=== PATIENT | female | born 1955 | race Caucasian/White ===

== ENCOUNTER 2018-12-17 16:19 | Inpatient (IN) | payer MEDICAID ==
[2018-12-17] MEDS ORDERED: Sodium Chloride 0.9% 1,000 ML IV ONE (17:18)
[2018-12-17] MEDS ORDERED: diphenhydrAMINE 50 MG/ML SDV IV ONE (17:28)
[2018-12-17] MEDS ORDERED: Acetaminophen 325 MG Tab PO ONE (17:28)
[2018-12-17] MEDS ORDERED: Furosemide 40 MG/4 ML VIAL IVPUSH ONE (17:28)
--- NOTE | 2018-12-17 18:02 | EDM.PDOC ---
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 She has a h/o Uterine cancer diagnosed back in 2011 at [facility] in [place], [place] (moved here in 2012) and states she has had intermittent "ceaseless bleeding ever since". She was supposed to have surgery for the cancer, but she lost her job and insurance and has not followed up with anyone since 2011. Her vaginal bleeding episodes are usually "short term"- lasting 5 minutes, feeling weak for a couple of days, and then she "just recovers". However, she says today is "the worst and I'm scared- I've been bleeding into the toilet for 1 hour straight". She states she got so dizzy she couldn't stand and so she went from the toilet to her knees. She denies any syncopal episode or fall. She also c/o of SOB with exertion, which is chronic. She denies any ROJO, change in vision, pain/cramping, chest pain, N/V/ D, hematochezia, hematuria. She has no other symptoms at this time. She currently has no PCP, SCHOOL LUNCH MANAGER, or SCHOOL LUNCH MANAGER ONC. She is a Full Code. - Related Data Allergies Allergy/AdvReac Type Severity Reaction Status Date / Time No Known Allergies Allergy Verified 12/17/18 16:29 Home Meds: Home Meds . [No Known Home Meds] 12/17/18 [History] ED ROS GENERAL - Review of Systems Review Of Systems: See Below Constitutional: Reports: Weakness, Fatigue. Denies: Fever, Chills HEENT: Reports: No Symptoms Respiratory: Reports: Shortness of Breath (with exertion). Denies: Wheezing, Cough Cardiovascular: Reports: Dyspnea on Exertion, Lightheadedness. Denies: Chest Pain Endocrine: Reports: Fatigue GI/Abdominal: Reports: No Symptoms. Denies: Abdominal Pain, Black Stool, Bloody Stool, Diarrhea, Hematemesis, Hematochezia, Nausea, Vomiting Musculoskeletal: Reports: Leg Pain (has muscle spasms when tries to move) Skin: Reports: Pallor Neurological: Reports: Dizziness, Difficulty Walking, Weakness, Gait Disturbance. Denies: Confusion, Headache, Numbness, Tingling, Trouble Speaking Hematologic/Lymphatic: Reports: Anemia ED EXAM, GENERAL - Physical Exam Exam: See Below Exam Limited By: No Limitations General Appearance: Alert, Mild Distress Eye Exam: Bilateral Eye: EOMI, PERRL, Other (pallor of eyelids) Ears: Normal External Exam, Hearing Grossly Normal Nose: Normal Inspection, Normal Mucosa, No Blood Throat/Mouth: Normal Oropharynx, Normal Voice, No Airway Compromise, Other ( pallor of gums and lips). No: Normal Lips, Normal Gums Head: Atraumatic, Normocephalic Neck: Normal Inspection, Supple, Non-Tender, Full Range of Motion Respiratory/Chest: No Respiratory Distress, Lungs Clear, Normal Breath Sounds, No Accessory Muscle Use, Chest Non-Tender Cardiovascular: Normal Peripheral Pulses, Regular Rate, Rhythm, No Edema, No Gallop, No JVD, No Murmur, No Rub Peripheral Pulses: 2+: Posterior Tibial (L), Posterior Tibial (R), Dorsalis Pedis (L), Dorsalis Pedis (R) GI/Abdominal: Normal Bowel Sounds, Soft, Non-Tender, No Organomegaly, No Distention, No Abnormal Bruit, No Mass (Female) Exam: Vaginal Bleeding, Vaginal Discharge. No: Cervix Motion Tenderness, Uterine Tenderness Rectal (Female) Exam: Deferred Extremities: Normal Inspection, Normal Range of Motion, Non-Tender, Normal Capillary Refill, No Pedal Edema Psychiatric: Flat Affect Skin Exam: Warm, Dry, Intact, Pallor Course - Vital Signs Last Recorded V/S: Last Vital Signs Temp 98.4 F 12/17/18 18:38 Pulse 86 12/17/18 18:38 Resp 13 12/17/18 18:38 BP 127/54 L 12/17/18 18:38 Pulse Ox 96 12/17/18 16:25 - Orders/Labs/Meds Orders: Active Orders 24 hr Category Date Time Status Chest Abdomen Pelvis wo Cont [CT] Stat Exams 12/17/18 20:00 Taken GC/CHLAMYDIA BY PCR [MOLEC] Stat Lab 12/17/18 19:49 Received RED BLOOD CELLS LP [BBK] Stat Lab 12/17/18 16:28 Results TYPE AND SCREEN [BBK] Stat Lab 12/17/18 16:28 Results Transfuse PRBC [Transfuse Red Blood Cells] [COMM] Stat Oth 12/17/18 17:28 Ordered Labs: Laboratory Tests 12/17/18 12/17/18 12/17/18 Range/Units 16:28 16:28 16:28 WBC 11.11 H (3.98-10.04) K/mm3 RBC 3.08 L (3.98-5.22) M/mm3 Hgb 4.6 L* (11.2-15.7) gm/L Hct 18.6 L (34.1-44.9) % MCV 60.4 L (79.4-94.8) fl MCH 14.9 L (25.6-32.2) pg MCHC 24.7 L (32.2-35.5) g/dl RDW Std Deviation 46.0 (36.4-46.3) fL Plt Count 311 (182-369) K/mm3 MPV 10.3 (9.4-12.3) fl Neut % (Auto) 84.4 H (34.0-71.1) % Lymph % (Auto) 8.7 L (19.3-51.7) % [place] % (Auto) 6.4 (4.7-12.5) % Eos % (Auto) 0.1 L (0.7-5.8) Baso % (Auto) 0.1 (0.1-1.2) % Neut # (Auto) 9.38 H (1.56-6.13) K/mm3 Lymph # (Auto) 0.97 L (1.18-3.74) K/mm3 [place] # (Auto) 0.71 H (0.24-0.36) K/mm3 Eos # (Auto) 0.01 L (0.04-0.36) K/mm3 Baso # (Auto) 0.01 (0.01-0.08) K/mm3 Manual Slide Review Abnormal smear PT (9.5-12.1) SECONDS INR APTT (24-31) SECONDS D-Dimer, Quantitative (0.19-0.50) mg/L Sodium 140 (136-145) mEq/L Potassium 3.6 (3.5-5.1) mEq/L Chloride 107 (98-107) mEq/L Carbon Dioxide 18 L (21-32) mEq/L Anion Gap 18.6 H (5-15) BUN 15 (7-18) mg/dL Creatinine 0.8 (0.55-1.02) mg/dL Est Cr Clr Drug Dosing 71.81 mL/min Estimated GFR (MDRD) > 60 (>60) mL/min BUN/Creatinine Ratio 18.8 H (14-18) Glucose 139 H (80-115) mg/dL Calcium 8.9 (8.5-10.1) mg/dL Total Bilirubin 0.4 (0.2-1.0) mg/dL AST 20 (15-37) U/L ALT 20 (14-59) U/L Alkaline Phosphatase 93 (46-116) U/L Total Protein 6.6 (6.4-8.2) g/dl Albumin 3.2 L (3.4-5.0) g/dl Globulin 3.4 gm/dL Albumin/Globulin Ratio 0.9 L (1-2) Blood Type A NEGATIVE Gel Antibody Screen Negative Crossmatch See Detail 12/17/18 Range/Units 18:07 WBC (3.98-10.04) K/mm3 RBC (3.98-5.22) M/mm3 Hgb (11.2-15.7) gm/L Hct (34.1-44.9) % MCV (79.4-94.8) fl MCH (25.6-32.2) pg MCHC (32.2-35.5) g/dl RDW Std Deviation (36.4-46.3) fL Plt Count (182-369) K/mm3 MPV (9.4-12.3) fl Neut % (Auto) (34.0-71.1) % Lymph % (Auto) (19.3-51.7) % [place] % (Auto) (4.7-12.5) % Eos % (Auto) (0.7-5.8) Baso % (Auto) (0.1-1.2) % Neut # (Auto) (1.56-6.13) K/mm3 Lymph # (Auto) (1.18-3.74) K/mm3 [place] # (Auto) (0.24-0.36) K/mm3 Eos # (Auto) (0.04-0.36) K/mm3 Baso # (Auto) (0.01-0.08) K/mm3 Manual Slide Review PT 10.5 (9.5-12.1) SECONDS INR 0.96 APTT (24-31) SECONDS D-Dimer, Quantitative 2.05 H (0.19-0.50) mg/L Sodium (136-145) mEq/L Potassium (3.5-5.1) mEq/L Chloride (98-107) mEq/L Carbon Dioxide (21-32) mEq/L Anion Gap (5-15) BUN (7-18) mg/dL Creatinine (0.55-1.02) mg/dL Est Cr Clr Drug Dosing mL/min Estimated GFR (MDRD) (>60) mL/min BUN/Creatinine Ratio (14-18) Glucose (80-115) mg/dL Calcium (8.5-10.1) mg/dL Total Bilirubin (0.2-1.0) mg/dL AST (15-37) U/L ALT (14-59) U/L Alkaline Phosphatase (46-116) U/L Total Protein (6.4-8.2) g/dl Albumin (3.4-5.0) g/dl Globulin gm/dL Albumin/Globulin Ratio (1-2) Blood Type Gel Antibody Screen Crossmatch Meds: Medications Discontinued Medications Generic Name Dose Route Start Last Admin Trade Name Freq PRN Reason Stop Dose Admin Acetaminophen 650 mg 12/17/18 17:28 12/17/18 18:18 Tylenol PO 12/17/18 17:29 650 mg NOW ONE Administration Diphenhydramine HCl 25 mg 12/17/18 17:28 12/17/18 18:18 Benadryl IV 12/17/18 17:29 25 mg ONETIME ONE Administration Furosemide 40 mg 12/17/18 17:28 12/17/18 18:18 Lasix IVPUSH 12/17/18 17:29 40 mg NOW ONE Administration Sodium Chloride 1,000 mls @ 999 mls/hr 12/17/18 17:18 12/17/18 17:30 Normal Saline IV 12/17/18 18:18 999 mls/hr ONETIME ONE Administration Sodium Chloride Confirm 04/07/19 18:08 Normal Saline Administered 12/17/18 18:09 Dose 200 mls @ as directed .ROUTE .[facility] - Re-Assessments/Exams Free Text/Narrative Re-Assessment/Exam: 12/17/18 16:41 I have ordered CBC, CMP, D-dimer, PT/PTT/INR, Type and Screen, Blood Transfusion 12/17/18 17:18 BP has dropped from 106/55 to 99/71. 1L NS Bolus ordered 12/17/18 17:20 Discussed case with on-call Pet Caretaker Dr. Zelaya. She would like a vaginal exam to be performed to determine amount of bleeding. She also states that there is no SCHOOL LUNCH MANAGER ONC in the [facility], which is what this patient will ultimately need, and recommends we reach out to [facility], or [facility] for definitive care. She also recommends we may be able to utilize Interventional Radiology in [place] for possible embolization. 12/17/18 18:01 Dr. De Los Santos has done the vaginal exam, as we could not move her on to an SCHOOL LUNCH MANAGER table w/ stirrups d/t her dizziness and I am unable to see well. He reports milky discharge mixed with blood and clots seen and would like me to order GC/ Chlamydia. 12/17/18 19:52 Discussed case with SCHOOL LUNCH MANAGER ONC Dr. Gil in [place], [place]. She states she would like us to stabilize the pt's Hgb and recommends admission. Once her Hgb is stabilized, she would like the pt to come follow up with her next Tuesday, as she is currently out of town. She would also like a workup including CT Chest, Abdomen, Pelvis to r/o metastasis as the pt has not been seen in 7 years and to see if she is operable. She states she may also be a candidate for radiation. She would like the hospitalist to call her with any questions regarding the patient at . She also requests that a referral from the hospitalist and medical records including CT be faxed to her office, Attn Soraya, at [phone]. 12/17/18 20:00 CT Chest, Ab, Pelvis ordered 12/17/18 20:01 Tried to reach Hospitalist Dr. Paredes. He is in a patient meeting. Will call me back. 12/17/18 20:[address] Paredes. He has accepted the pt as Med-Surg on telemetry. Would like me to order 4U blood total. Departure - Departure Time of Disposition: 21:43 Disposition: Admitted As Inpatient 68 Condition: Fair Clinical Impression: Anemia, Uterine cancer - Discharge Information *PRESCRIPTION DRUG MONITORING PROGRAM REVIEWED*: Not Applicable *COPY OF PRESCRIPTION DRUG MONITORING REPORT IN PATIENT [place]AYO: Not Applicable Referrals: PCP,None [Primary Care Provider] - Forms: ED Department Discharge - My Orders Last 24 Hours: My Active Orders 12/17/18 16:28 RED BLOOD CELLS LP [BBK] Stat TYPE AND SCREEN [BBK] Stat 12/17/18 17:28 Transfuse PRBC [Transfuse Red Blood Cells] [COMM] Stat 12/17/18 19:49 GC/CHLAMYDIA BY PCR [MOLEC] Stat 12/17/18 20:00 Chest Abdomen Pelvis wo Cont [CT] Stat - Assessment/Plan Last 24 Hours: My Active Orders 12/17/18 16:28 RED BLOOD CELLS LP [BBK] Stat TYPE AND SCREEN [BBK] Stat 12/17/18 17:28 Transfuse PRBC [Transfuse Red Blood Cells] [COMM] Stat 12/17/18 19:49 GC/CHLAMYDIA BY PCR [MOLEC] Stat 12/17/18 20:00 Chest Abdomen Pelvis wo Cont [CT] Stat
[2018-12-17] MEDS ORDERED: Sodium Chloride 0.9% 200 ML ONE (18:08)
--- NOTE | 2018-12-17 23:24 | PCM.SN ---
- Free Text/Narrative Note: Patient seen and examined at beside. She feels a little better. She states, she does not normally sees a doctor and she has no regular doctor that she follows. Inquires what she wants to do if she has metastatic disease. She replies, she wants to treat it naturally or alternative medicine. Patient CT scan report reads small right pleural effusion. Her abdominal/pelvis CT scan report reads lobular, enlarged uterus. consistent with given her hx/o uterine cancer. 2 cm right external iliac lymph node could be metastatic. IVC filter present. Cholelithiasis. Patient is aware no gyneco-computer system specialist around the area. She will be receiving a total of 4 units of PBCS to bring her Hgb level to at least 8 grams from 4.6 with plan for possible discharge in AM if stable. Her code status is full.
[2018-12-17] MEDS ORDERED: Polyethylene Glycol 3350 Powder 17 GM Packet PO PRN (23:25)
[2018-12-17] MEDS ORDERED: LORazepam 2 MG/ML SDV IV PRN (23:25)
[2018-12-17] MEDS ORDERED: Acetaminophen/HYDROcodone 325-5 MG Tab PO PRN (23:25)
[2018-12-17] MEDS ORDERED: LORazepam 2 MG/ML SDV IVPUSH PRN (23:25)
[2018-12-17] MEDS ORDERED: hydrALAZINE 20 MG/ML SDV IVPUSH PRN (23:25)
[2018-12-17] MEDS ORDERED: Ondansetron 4 MG/2 ML SDV IV PRN (23:25)
[2018-12-17] MEDS ORDERED: Bisacodyl 5 MG Tab PO PRN (23:25)
[2018-12-17] MEDS ORDERED: HYDROmorphone 1 MG/ML Syringe IVPUSH PRN (23:25)
[2018-12-17] MEDS ORDERED: Temazepam 15 MG Cap PO PRN (23:25)
[2018-12-17] MEDS ORDERED: Albuterol/Ipratropium 3.0-0.5 MG/3 ML Neb Soln NEB PRN (23:25)
[2018-12-17] MEDS ORDERED: Docusate Sodium 100 MG Cap PO PRN (23:25)
[2018-12-17] MEDS ORDERED: Metoprolol Tartrate 5 MG/5 ML SDV IVPUSH PRN (23:25)
[2018-12-17 23:39] LABS: C. TRACHOMATIS BY PCR NOT DETECTED; N. GONORRHOEAE BY PCR NOT DETECTED
[2018-12-17] MEDS ORDERED: Sodium Chloride 0.9% 250 ML IV SCH (23:45)
[2018-12-18] MEDS ORDERED: Sodium Chloride 0.9% 250 ML ONE
[2018-12-18] MEDS: Potassium Chloride 20 MEQ Tab.ER PO SCH ×2 (00:06→04:13)
--- NOTE | 2018-12-18 06:33 | PCM.HP ---
H&P History of Present Illness - General Date of Service: 12/18/18 Admit Problem/Dx: Admission Diagnosis/Problem Admission Diagnosis/Problem Anemia Source of Information: Patient, Provider, RN, RN Notes Reviewed History Limitations: Reports: No Limitations - History of Present Illness Initial Comments - Free Text/Narative: Lisa Lemus is a 63 yo female who presents to our ED on 12/17/18 via ambulance with vaginal bleeding and dizziness for 1 hour. 2 history of uterine cancer which was diagnosed back in 2011 at [facility] in [facility]. She reported they've moved here in 2012 and states she has had intermittent "ceaseless bleeding ever since." She is originally was to have surgery for her cancer but she lost her job and insurance has not followed up with anyone since 2011. She reports her bleeding episodes are usually short term lasting 5 minutes and then feeling weak for a couple days and she will then "just recover. " She reports this time is different and today is "the worst and I'm scared/IV been bleeding into the toilet for 1 hour straight." She poorly was so dizzy she couldn't stand and when attempting to get up from the toilet when turned knees. Denies any other syncopal episodes or falls. She reports she also has shortness of breath with exertion which is chronic. Denies any headache, vision changes, pain, cramping, chest pain, nausea, vomiting, diarrhea, hematochezia, hamaturia, or other symptoms. In the ED temp was 98.4 Fahrenheit. Pulse 86. Respirations 13. Blood pressure 127/54. Pulse ox 96%. Labs are obtained: WBC slightly elevated at 11.11. Hemoglobin is very low at 4.6. Hematocrit 18.6. She is microcytic. Pulses are good at 311,000. Neutrophils are elevated at 84.4%. Sodium is 140. Potassium 3.6. Chloride 107. Carbon monoxide 18. Anion gap was high at 18.6. BUN is 15. Creatinine 0.8. EGFR greater than 60. Glucose is high at 139. Calcium 8.9. Total bilirubin 0.4. Indices 20, ALT is 20, alkaline phosphatase 93. Protein 6.6. Albumin is low at 3.2. Type and screen shows a negative blood with negative screen. PT is 10.5. INR 0.96. D-dimer is 2.05. She is given a 1 L fluid bolus and 4 units of blood. freight caller PRODUCT DEVELOPMENT INTERN, Dr. Luh Munoz contacted and requests vaginal exam be performed to determine amount of bleeding. She also reports there is no gynecological oncology in stating her [place], which is what the patient will ultimately need and she recommends ED provider Rowdy to [facility], or [place], for definitive care. She also reports the patient may need interventional radiology in [place] for embolization. Vaginal exam performed and shows no acute discharge mixed with blood and clots so GC/chlamydia is also ordered. , Dr. Templeton, and [facility] is contacted and recommends admission to stabilize the patient's hemoglobin. She reports once her hemoglobin stabilized she would like the patient to follow-up with her next Tuesday and she is currently out of town. She would also like a CT of the chest abdomen and pelvis to rule out metastasis as the patient has not been seen in 7 years and see if she is operable. She reports patient may be a candidate for radiation. She requests hospitalist service contact her with any questions regarding the patient had . She requests that a referral form from the hospital some medical records during the CT scan be faxed her office, attention Tuesday, [phone]. CT scan report shows a small right pleural effusion. Abdomen pelvis CT scan reads low Cheng enlarged uterus. This is consistent with her history of uterine cancer. 2 cm right external iliac lymph node could be hemostatic. IVC filter is present. Cholestasis. Reports a history of uterine cancer diagnosed in [facility] area and no other past history. She does not have any PCP providers locally. She is a full code. Really admitted to the medical floor inpatient with telemetry. 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 INTERN History: Reports: Endometriosis, Other (See Below) Other OB/BYN History: One ovary removed Hematologic History: Reports: Other (See Below) Other Hematologic History: DVT Oncologic (Cancer) History: Reports: Uterine Other Oncologic History: Diagnosed 2011, No treatment done to this date - Past Surgical History Oncologic Surgical History: Reports: None Social & Family History - Family History Family Medical History: Noncontributory - Tobacco Use Smoking Status *Q: Never Smoker Second Hand Smoke Exposure: No - Caffeine Use Caffeine Use: Reports: Coffee Caffeine Use Comment: 12 oz daily - Recreational Drug Use Recreational Drug Use: No H&P Review of Systems - Review of Systems: Review Of Systems: See Below General: Reports: No Symptoms. Denies: Fever, Chills, Malaise, Weakness, Fatigue HEENT: Reports: No Symptoms. Denies: Headaches, Sore Throat Pulmonary: Reports: No Symptoms. Denies: Shortness of Breath, Wheezing, Pleuritic Chest Pain, Cough, Sputum Cardiovascular: Reports: No Symptoms. Denies: Chest Pain, Palpitations, Dyspnea on Exertion, Lightheadedness Gastrointestinal: Reports: No Symptoms. Denies: Abdominal Pain, Constipation, Diarrhea, Nausea, Vomiting Genitourinary: Reports: No Symptoms. Denies: Pain Musculoskeletal: Reports: No Symptoms Skin: Reports: No Symptoms. Denies: Cyanosis Psychiatric: Reports: No Symptoms. Denies: Confusion Neurological: Reports: No Symptoms Hematologic/Lymphatic: Reports: Anemia Immunologic: Reports: No Symptoms Exam - Exam Exam: See Below - Vital Signs Vital Signs: Last Vital Signs Temp 99.0 F 12/18/18 04:59 Pulse 85 12/18/18 04:59 Resp 18 12/18/18 04:59 BP 146/59 H 12/18/18 04:59 Pulse Ox 95 12/18/18 04:59 Weight: 179 lb 14.4 oz - Exam Quality Assessment: DVT Prophylaxis General: Alert, Oriented, Cooperative. No: Mild Distress HEENT: Conjunctiva Clear, EACs Clear, EOMI, Hearing Intact, Mucosa Moist & Paden , Nares Patent, Posterior Pharynx Clear, PERRLA Neck: Supple, Trachea Midline Lungs: Clear to Auscultation, Normal Respiratory Effort Cardiovascular: Regular Rate, Regular Rhythm GI/Abdominal Exam: Normal Bowel Sounds, Soft, Non-Tender, No Distention, No Abnormal Bruit (Female) Exam: Deferred Rectal (Female) Exam: Deferred Back Exam: Normal Inspection, Full Range of Motion Extremities: Normal Inspection, Normal Range of Motion, Non-Tender, No Pedal Edema, Normal Capillary Refill Peripheral Pulses: 2+: Radial (L), Radial (R), Dorsalis Pedis (L), Dorsalis Pedis (R) Skin: Warm, Dry, Intact Neurological: Cranial Nerves Intact (grossly ) Neuro Extensive - Mental Status: Alert, Oriented x3, Normal Mood/Affect - Patient Data Lab Results Last 24 hrs: Laboratory Results - last 24 hr 12/17/18 12/17/18 12/17/18 Range/Units 16:28 16:28 16:28 WBC 11.11 H (3.98-10.04) K/mm3 RBC 3.08 L (3.98-5.22) M/mm3 Hgb 4.6 L* (11.2-15.7) gm/L Hct 18.6 L (34.1-44.9) % MCV 60.4 L (79.4-94.8) fl MCH 14.9 L (25.6-32.2) pg MCHC 24.7 L (32.2-35.5) g/dl RDW Std Deviation 46.0 (36.4-46.3) fL Plt Count 311 (182-369) K/mm3 MPV 10.3 (9.4-12.3) fl Neut % (Auto) 84.4 H (34.0-71.1) % Lymph % (Auto) 8.7 L (19.3-51.7) % [place] % (Auto) 6.4 (4.7-12.5) % Eos % (Auto) 0.1 L (0.7-5.8) Baso % (Auto) 0.1 (0.1-1.2) % Neut # (Auto) 9.38 H (1.56-6.13) K/mm3 Lymph # (Auto) 0.97 L (1.18-3.74) K/mm3 [place] # (Auto) 0.71 H (0.24-0.36) K/mm3 Eos # (Auto) 0.01 L (0.04-0.36) K/mm3 Baso # (Auto) 0.01 (0.01-0.08) K/mm3 Manual Slide Review Abnormal smear PT (9.5-12.1) SECONDS INR APTT (24-31) SECONDS D-Dimer, Quantitative (0.19-0.50) mg/L Sodium 140 (136-145) mEq/L Potassium 3.6 (3.5-5.1) mEq/L Chloride 107 (98-107) mEq/L Carbon Dioxide 18 L (21-32) mEq/L Anion Gap 18.6 H (5-15) BUN 15 (7-18) mg/dL Creatinine 0.8 (0.55-1.02) mg/dL Est Cr Clr Drug Dosing 71.81 mL/min Estimated GFR (MDRD) > 60 (>60) mL/min BUN/Creatinine Ratio 18.8 H (14-18) Glucose 139 H (80-115) mg/dL Calcium 8.9 (8.5-10.1) mg/dL Total Bilirubin 0.4 (0.2-1.0) mg/dL AST 20 (15-37) U/L ALT 20 (14-59) U/L Alkaline Phosphatase 93 (46-116) U/L Total Protein 6.6 (6.4-8.2) g/dl Albumin 3.2 L (3.4-5.0) g/dl Globulin 3.4 gm/dL Albumin/Globulin Ratio 0.9 L (1-2) Urine Color (Yellow) Urine Appearance (Clear) Urine pH (5.0-8.0) Ur Specific [place] (1.005-1.030) Urine Protein (Negative) Urine Glucose (UA) (Negative) Urine Ketones (Negative) Urine Occult Blood (Negative) Urine Nitrite (Negative) Urine Bilirubin (Negative) Urine Urobilinogen (0.2-1.0) Ur Leukocyte Esterase (Negative) Urine RBC (0-5) /hpf Urine WBC (0-5) /hpf Urine WBC Clumps (NOT SEEN) /hpf Ur Epithelial Cells (0-5) /hpf Urine Bacteria (FEW) /hpf Urine Mucus (FEW) /hpf C trachomatis DNA (PCR) N gonorrhoeae DNA (PCR) Blood Type A NEGATIVE Gel Antibody Screen Negative Crossmatch See Detail 12/17/18 12/17/18 12/17/18 Range/Units 17:27 18:07 19:49 WBC (3.98-10.04) K/mm3 RBC (3.98-5.22) M/mm3 Hgb (11.2-15.7) gm/L Hct (34.1-44.9) % MCV (79.4-94.8) fl MCH (25.6-32.2) pg MCHC (32.2-35.5) g/dl RDW Std Deviation (36.4-46.3) fL Plt Count (182-369) K/mm3 MPV (9.4-12.3) fl Neut % (Auto) (34.0-71.1) % Lymph % (Auto) (19.3-51.7) % [place] % (Auto) (4.7-12.5) % Eos % (Auto) (0.7-5.8) Baso % (Auto) (0.1-1.2) % Neut # (Auto) (1.56-6.13) K/mm3 Lymph # (Auto) (1.18-3.74) K/mm3 [place] # (Auto) (0.24-0.36) K/mm3 Eos # (Auto) (0.04-0.36) K/mm3 Baso # (Auto) (0.01-0.08) K/mm3 Manual Slide Review PT 10.5 (9.5-12.1) SECONDS INR 0.96 APTT (24-31) SECONDS D-Dimer, Quantitative 2.05 H (0.19-0.50) mg/L Sodium (136-145) mEq/L Potassium (3.5-5.1) mEq/L Chloride (98-107) mEq/L Carbon Dioxide (21-32) mEq/L Anion Gap (5-15) BUN (7-18) mg/dL Creatinine (0.55-1.02) mg/dL Est Cr Clr Drug Dosing mL/min Estimated GFR (MDRD) (>60) mL/min BUN/Creatinine Ratio (14-18) Glucose (80-115) mg/dL Calcium (8.5-10.1) mg/dL Total Bilirubin (0.2-1.0) mg/dL AST (15-37) U/L ALT (14-59) U/L Alkaline Phosphatase (46-116) U/L Total Protein (6.4-8.2) g/dl Albumin (3.4-5.0) g/dl Globulin gm/dL Albumin/Globulin Ratio (1-2) Urine Color (Yellow) Urine Appearance (Clear) Urine pH (5.0-8.0) Ur Specific [place] (1.005-1.030) Urine Protein (Negative) Urine Glucose (UA) (Negative) Urine Ketones (Negative) Urine Occult Blood (Negative) Urine Nitrite (Negative) Urine Bilirubin (Negative) Urine Urobilinogen (0.2-1.0) Ur Leukocyte Esterase (Negative) Urine RBC (0-5) /hpf Urine WBC (0-5) /hpf Urine WBC Clumps (NOT SEEN) /hpf Ur Epithelial Cells (0-5) /hpf Urine Bacteria (FEW) /hpf Urine Mucus (FEW) /hpf C trachomatis DNA (PCR) Not detected N gonorrhoeae DNA (PCR) Not detected Blood Type Gel Antibody Screen Crossmatch See Detail 12/18/18 12/18/18 Range/Units 02:50 06:05 WBC 8.08 (3.98-10.04) K/mm3 RBC 3.70 L (3.98-5.22) M/mm3 Hgb 7.5 L (11.2-15.7) gm/L Hct 25.1 L (34.1-44.9) % MCV 67.8 L (79.4-94.8) fl MCH 20.3 L (25.6-32.2) pg MCHC 29.9 L (32.2-35.5) g/dl RDW Std Deviation 62.8 H (36.4-46.3) fL Plt Count 220 (182-369) K/mm3 MPV 9.3 L (9.4-12.3) fl Neut % (Auto) 75.9 H (34.0-71.1) % Lymph % (Auto) 14.6 L (19.3-51.7) % [place] % (Auto) 8.8 (4.7-12.5) % Eos % (Auto) 0.5 L (0.7-5.8) Baso % (Auto) 0.1 (0.1-1.2) % Neut # (Auto) 6.13 (1.56-6.13) K/mm3 Lymph # (Auto) 1.18 (1.18-3.74) K/mm3 [place] # (Auto) 0.71 H (0.24-0.36) K/mm3 Eos # (Auto) 0.04 (0.04-0.36) K/mm3 Baso # (Auto) 0.01 (0.01-0.08) K/mm3 Manual Slide Review PT (9.5-12.1) SECONDS INR APTT (24-31) SECONDS D-Dimer, Quantitative (0.19-0.50) mg/L Sodium (136-145) mEq/L Potassium (3.5-5.1) mEq/L Chloride (98-107) mEq/L Carbon Dioxide (21-32) mEq/L Anion Gap (5-15) BUN (7-18) mg/dL Creatinine (0.55-1.02) mg/dL Est Cr Clr Drug Dosing mL/min Estimated GFR (MDRD) (>60) mL/min BUN/Creatinine Ratio (14-18) Glucose (80-115) mg/dL Calcium (8.5-10.1) mg/dL Total Bilirubin (0.2-1.0) mg/dL AST (15-37) U/L ALT (14-59) U/L Alkaline Phosphatase (46-116) U/L Total Protein (6.4-8.2) g/dl Albumin (3.4-5.0) g/dl Globulin gm/dL Albumin/Globulin Ratio (1-2) Urine Color Light yellow (Yellow) Urine Appearance Cloudy H (Clear) Urine pH 6.0 (5.0-8.0) Ur Specific [place] 1.020 (1.005-1.030) Urine Protein 1+ H (Negative) Urine Glucose (UA) Negative (Negative) Urine Ketones Trace H (Negative) Urine Occult Blood 2+ H (Negative) Urine Nitrite Negative (Negative) Urine Bilirubin Negative (Negative) Urine Urobilinogen 0.2 (0.2-1.0) Ur Leukocyte Esterase 2+ H (Negative) Urine RBC 10-20 H (0-5) /hpf Urine WBC 40-50 H (0-5) /hpf Urine WBC Clumps Few (NOT SEEN) /hpf Ur Epithelial Cells 0-5 (0-5) /hpf Urine Bacteria Moderate H (FEW) /hpf Urine Mucus Moderate H (FEW) /hpf C trachomatis DNA (PCR) N gonorrhoeae DNA (PCR) Blood Type Gel Antibody Screen Crossmatch Result Diagrams: 12/18/18 06:05 12/18/18 06:05 - Problem List (1) Anemia SNOMED Code(s): 903690971 ICD Code: D64.9 - ANEMIA, UNSPECIFIED Status: Acute Priority: High Current Visit: Yes Qualifiers: Anemia type: other cause Other causes of anemia: chronic disease, neoplastic Qualified Code(s): D63.0 - Anemia in neoplastic disease (2) Uterine cancer SNOMED Code(s): 874340960 ICD Code: C55 - MALIGNANT NEOPLASM OF UTERUS, PART UNSPECIFIED Status: Acute Current Visit: Yes Qualifiers: Malignant neoplasm of uterus location: unspecified site of uterus Qualified Code(s): C55 - Malignant neoplasm of uterus, part unspecified (3) UTI (urinary tract infection) SNOMED Code(s): 63401565 ICD Code: N39.0 - URINARY TRACT INFECTION, SITE NOT SPECIFIED Status: Acute Priority: High Current Visit: Yes Qualifiers: Urinary tract infection type: site unspecified Hematuria presence: with hematuria Qualified Code(s): N39.0 - Urinary tract infection, site not specified; R31.9 - Hematuria, unspecified Problem List Initiated/Reviewed/Updated: Yes Orders Last 24hrs: Active Orders 24 hr Category Date Time Status Patient Status [ADT] Routine ADT 12/17/18 21:20 Active Antiembolic Devices [RC] BID Care 12/17/18 23:26 Active Height and Weight [RC] 04 Care 12/17/18 23:25 Active Incentive Spirometry [RT Incentive Spirometry] [RC] Care 12/17/18 23:32 Active Q2HWA Intake and Output [RC] 04,16 Care 12/17/18 23:25 Active Oxygen Therapy [RC] PRN Care 12/17/18 23:25 Active RT Aerosol Therapy [RC] ASDIRECTED Care 12/17/18 23:28 Active Up With Assistance [RC] BID Care 12/17/18 23:25 Active Up ad Rizwana [RC] BID Care 12/17/18 23:25 Active VTE/DVT Education [RC] DAILY Care 12/17/18 23:25 Active Vital Signs [RC] Q4HR Care 12/17/18 23:25 Active Consult to Case Management/Car Park Attendant [CONS] Cons 12/17/18 23:25 Active Routine Consult to Wood Furniture Assembler [CONS] Routine Cons 12/17/18 23:25 Active Consult to Spiritual Care [CONS] Routine Cons 12/17/18 23:25 Active Heart Healthy Diet [DIET] Diet 12/17/18 Breakfast Active Chest Abdomen Pelvis wo Cont [CT] Stat Exams 12/17/18 20:00 Taken A1C [GLYCOSYLATED HEMOGLOBIN,HGBA1C] [CHEM] AM Lab 12/18/18 06:05 Received BASIC METABOLIC PANEL,BMP [CHEM] AM Lab 12/18/18 06:05 Received BASIC METABOLIC PANEL,BMP [CHEM] AM Lab 12/19/18 05:11 Ordered BASIC METABOLIC PANEL,BMP [CHEM] AM Lab 12/20/18 05:11 Ordered CBC WITH AUTO DIFF [HEME] AM Lab 12/19/18 05:11 Ordered CBC WITH AUTO DIFF [HEME] AM Lab 12/20/18 05:11 Ordered CBC WITH AUTO DIFF [HEME] AM Lab 12/21/18 05:11 Ordered CBC WITH AUTO DIFF [HEME] Timed Lab 12/18/18 06:05 Results CULTURE URINE [RM] Stat Lab 12/17/18 23:25 Received FE, TIBC, TRANSFERRIN, FE SAT [CHEM] Routine Lab 12/18/18 06:05 Received MAGNESIUM [CHEM] AM Lab 12/18/18 06:05 Received MAGNESIUM [CHEM] AM Lab 12/19/18 05:11 Ordered MAGNESIUM [CHEM] AM Lab 12/20/18 05:11 Ordered T4 FREE [CHEM] AM Lab 12/18/18 06:05 Received TSH [CHEM] AM Lab 12/18/18 06:05 Received Acetaminophen/HYDROcodone [[place] 325-5 MG] Med 12/17/18 23:25 Active 1 tab PO Q4H PRN Albuterol/Ipratropium [DuoNeb 3.0-0.5 MG/3 ML] Med 12/17/18 23:25 Active 3 ml NEB Q4H PRN Bisacodyl [Dulcolax] Med 12/17/18 23:25 Active 5 mg PO DAILY PRN Docusate Sodium [Colace] Med 12/17/18 23:25 Active 100 mg PO BID PRN Docusate Sodium/Sennosides [Senna Plus] Med 12/17/18 23:25 Active 1 tab PO BID PRN Famotidine [Pepcid] Med 12/18/18 09:00 Active 20 mg PO BID HYDROmorphone [Dilaudid] Med 12/17/18 23:25 Active 0.25 mg IVPUSH Q2H PRN LORazepam [Ativan] Med 12/17/18 23:25 Active 1 mg IV Q6H PRN LORazepam [Ativan] Med 12/17/18 23:25 Active 2 mg IVPUSH Q4H PRN Metoprolol Tartrate [Lopressor] Med 12/17/18 23:25 Active 5 mg IVPUSH Q4H PRN Ondansetron [Zofran] Med 12/17/18 23:25 Active 4 mg IV Q6H PRN Pharmacy to Dose - Magnesium R [Pharmacy to Dose - Med 12/17/18 23:30 Pending Magnesium Replacement] 1 dose .XX ASDIRECTED Pharmacy to Dose - Potassium R [Pharmacy to Dose - Med 12/17/18 23:30 Pending Potassium Replacement] 1 dose .XX ASDIRECTED Polyethylene Glycol 3350 [MiraLAX] Med 12/17/18 23:25 Active 17 gm PO DAILY PRN Sodium Chloride 0.9% [Normal Saline] 250 ml Med 12/17/18 23:45 Active IV ASDIRECTED Temazepam [Restoril] Med 12/17/18 23:25 Active 15 mg PO BEDTIME PRN hydrALAZINE [Apresoline] Med 12/17/18 23:25 Active 20 mg IVPUSH Q4H PRN Sequential Compression Device [OM.PC] Per Unit Routine Ot 12/17/18 23:25 Ordered Transfuse PRBC [Transfuse Red Blood Cells] [COMM] Stat Oth 12/17/18 17:28 Ordered Transfuse PRBC [Transfuse Red Blood Cells] [COMM] Stat Oth 12/17/18 21:20 Ordered Resuscitation Status Routine Resus Stat 12/17/18 23:25 Ordered Medication Orders Hydrocodone Bitart/Acetaminophen ([place] 325-5 Mg) 1 tab PO Q4H PRN PRN Reason: Pain (moderate 4-6) Albuterol/Ipratropium (Duoneb 3.0-0.5 Mg/3 Ml) 3 ml NEB Q4H PRN PRN Reason: Shortness Of Breath/wheezing Bisacodyl (Dulcolax) 5 mg PO DAILY PRN PRN Reason: Constipation Docusate Sodium (Colace) 100 mg PO BID PRN PRN Reason: Constipation Famotidine (Pepcid) 20 mg PO BID BOB Hydralazine HCl (Apresoline) 20 mg IVPUSH Q4H PRN PRN Reason: Hypertension Hydromorphone HCl (Dilaudid) 0.25 mg IVPUSH Q2H PRN PRN Reason: Pain (severe 7-10) Sodium Chloride (Normal Saline) 250 mls @ 50 mls/hr IV ASDIRECTED [facility] Last Admin: 12/18/18 00:15 Dose: 50 mls/hr Lorazepam (Ativan) 2 mg IVPUSH Q4H PRN PRN Reason: Seizures Lorazepam (Ativan) 1 mg IV Q6H PRN PRN Reason: Anxiety Magnesium Sulfate (Pharmacy To Dose - Magnesium Replacement) 1 dose .XX ASDIRECTED [facility] Metoprolol Tartrate (Lopressor) 5 mg IVPUSH Q4H PRN PRN Reason: Tachycardia Ondansetron HCl (Zofran) 4 mg IV Q6H PRN PRN Reason: Nausea/Vomiting Polyethylene Glycol (Miralax) 17 gm PO DAILY PRN PRN Reason: Constipation Potassium Chloride (Pharmacy To Dose - Potassium Replacement) 1 dose .XX ASDIRECTED [facility] Senna/Docusate Sodium (Senna Plus) 1 tab PO BID PRN PRN Reason: Constipation Temazepam (Restoril) 15 mg PO BEDTIME PRN PRN Reason: Sleep Assessment/Plan Comment:: I/P: Acute: Anemia 2/2 uterine bleeding -2/2 uterine cancer diagnosed in 2011 -Has not followed up since diagnosis and moving from [place] in 2012 -Reports frequent short term episodes of vaginal bleeding which self resolve , however this time they did not -Reports bleeding into toilet for 1 hr prior to calling ambulance -Hgb 4.6 in ED -Hct 18.6 -PT 10.5, INR 0.96 -Given 4 units in ED -PRODUCT DEVELOPMENT INTERN, Dr. Zelaya contacted in ED -requests vaginal exam to determine amount of bleeding -No FINANCIAL SERVICES SPECIALIST ONC in [place] - recommends reach out to [place], [place], or [place] for definitive care -May need interventional radiology in [place] for possible embolization -Negative gonorrhea and Trichomonas -Dr. Gil, FINANCIAL SERVICES SPECIALIST ONC in [place] contacted by ED provider -Recommends admission to hospital to stabilize Hgb -Requests patient follow-up with her next Tuesday as she is out of town -Hospitalist contact with questions - -Fax referral from hospitalist and medical records including CT to her office, Attn Soraya, at -Requests CT chest/abdomen/pelvis to r/o metastasis and determine if she is operable -Reports she may be a candidate for radiation -CT chest in ED 12/17/18: * 1. Small right pleural effusion. -CT Abdomen and pelvis without contrast in ED 12/17/18: * 1. Lobular, enlarged uterus. Nonspecific. Consistent with given history of uterine cancer. * 2. 2 cm in right external iliac lymph node could be metastatic. * 3. Noncontributory CT in the identification of cause of gastrointestinal bleeding. -Iron Panel: Iron 80, TIBC 330, percent saturation 24, transferrin 264. UTI -UA obtained on 12/18/18 -UA: Cloudy with 1+ protein, Trace ketones, 2+ Occult blood, 2+ Leuk esterase , 10-20 RBCs, 40-50 WBCs, Moderate bacteria, Moderate mucous -Rocephin 1 gram started Chronic: Uterine cancer diagnosed in 2011 Plan: Admit to medical floor observation status with telemetry Other orders as indicated above Routine AM labs CM/SW for discharge planning Spiritual care consult A1C obtained - 5.10 TSH and free T4 WNL Wood Furniture Assembler consult DVT prophylaxis: SCDs Code status: Full code; PCP: None
[2018-12-18 07:40] LABS: HEMOGLOBIN A1C 5.1 % (4.50-6.20)
[2018-12-18] MEDS ORDERED: HYDROmorphone 0.5 MG/0.5 ML Syringe IVPUSH PRN (07:54)
--- NOTE | 2018-12-18 08:41 | CT ---
CT chest Technique: Multiple axial sections were obtained from above the lung apices inferiorly through the lung bases. Intravenous contrast was not utilized. Comparison: No previous chest imaging. Findings: Increased density is noted within both lung bases either due to scarring or atelectasis. Very minimal right sided pleural effusion is seen. Lungs otherwise are clear. No pulmonary nodules are seen. No pleural effusions are noted. Mediastinum and hilar regions show no adenopathy or mass. No pericardial thickening is seen. Bone window settings show scattered degenerative endplate spurring within the spine. No acute osseous abnormality is seen. Impression: 1. Minimal right-sided pleural effusion. Other findings are most likely incidental as described above. 2. Nothing acute is seen. Diagnostic code #2 I agree with preliminary report from [facility], finalized on 12/17/18, 10:[address] abdomen and pelvis Technique: Multiple axial sections were obtained from above the dome of the diaphragm inferiorly through the pubic symphysis. Intravenous and oral contrast not utilized which diminishes details of this exam. Comparison: No previous abdominal or pelvic imaging. Findings: Liver contains no focal abnormality. Spleen appears within normal limits. Adrenal glands show no nodule. Calcifications are noted within the gallbladder which are compatible with gallstones. Adrenal glands show no nodule. Kidneys show no abnormal calcifications or hydronephrosis. Inferior vena cava stent is seen. Aorta shows no aneurysm. No retroperitoneal adenopathy or mesenteric abnormalities are seen. Appendix is seen which is normal in size. Nonspecific enlarged uterus which is mildly lobulated. There is a mildly enlarged lymph node being seen within the right external iliac chain measuring about 2.1 cm. No other areas of adenopathy are seen. No free fluid or inflammatory change is seen within the abdomen or within the pelvis. Bone window settings show degenerative change within the lower apophyseal joints of the lumbar spine. Disc space narrowing and vacuum phenomenon is noted within the L5-S1 disc. Impression: 1. Enlarged and slightly lobulated uterus which is nonspecific. 2. Slightly enlarged lymph node within the right external iliac chain measuring 2.1 cm. Difficult to exclude metastatic lymph node. 3. Other incidental findings as noted above. Diagnostic code #3 I agree with preliminary report from [facility], finalized on 12/17/18, 10:43 PM Central Time
[2018-12-18] MEDS ORDERED: Famotidine 20 MG Tab PO SCH (09:00)
[2018-12-18] MEDS ORDERED: cefTRIAXone 1 GM in Sodium Chloride 0.9% 100 ML IV SCH ×2 (11:15→11:40)
[2018-12-18] MEDS ORDERED: Saccharomyces Boulardii (Probiotic) 250 MG Cap PO SCH (11:15)
--- NOTE | 2018-12-18 18:19 | PCM.DCSUM1 ---
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 SNOMED Code(s): 237817940 ICD Code: C79.9 - SECONDARY MALIGNANT NEOPLASM OF UNSPECIFIED SITE; C55 - MALIGNANT NEOPLASM OF UTERUS, PART UNSPECIFIED Status: Acute Current Visit: Yes (2) Anemia SNOMED Code(s): 432321772 ICD Code: D64.9 - ANEMIA, UNSPECIFIED Status: Acute Priority: High Current Visit: Yes Qualifiers: Anemia type: other cause Other causes of anemia: chronic disease, neoplastic Qualified Code(s): D63.0 - Anemia in neoplastic disease (3) UTI (urinary tract infection) SNOMED Code(s): 73465849 ICD Code: N39.0 - URINARY TRACT INFECTION, SITE NOT SPECIFIED Status: Acute Priority: High Current Visit: Yes Qualifiers: Urinary tract infection type: site unspecified Hematuria presence: with hematuria Qualified Code(s): N39.0 - Urinary tract infection, site not specified; R31.9 - Hematuria, unspecified (4) Uterine cancer SNOMED Code(s): 553004743 ICD Code: C55 - MALIGNANT NEOPLASM OF UTERUS, PART UNSPECIFIED Status: Acute Current Visit: Yes Qualifiers: Malignant neoplasm of uterus location: unspecified site of uterus Qualified Code(s): C55 - Malignant neoplasm of uterus, part unspecified (5) Obesity SNOMED Code(s): 632395874, 004503517 ICD Code: E66.9 - OBESITY, UNSPECIFIED Status: Acute Current Visit: Yes Qualifiers: Obesity type: due to excess calories Obesity classification: unspecified obesity classification Serious obesity comorbidity presence: without serious comorbidity Qualified Code(s): E66.09 - Other obesity due to excess calories - Patient Summary/Data Consults: Consultations 12/17/18 23:25 Consult to Case Management/Powder Mixer [CONS] Routine Consult to Furnace Fitter [CONS] Routine Consult to Spiritual Care [CONS] Routine - Patient Instructions Diet: Usual Diet as Tolerated, Weight Loss Diet Activity: As Tolerated Driving: Do Not Drive Showering/Bathing: May Shower Notify Provider of: Fever, Increased Pain, Swelling and Redness, Nausea and/or Vomiting Other/Special Instructions: - Please take all new medications as directed. - Resume all home medications and routine activities as tolerated. - Recommend follow up CBC through your PCP's office in 1 week. - Recommend you see Dr. Gil in 1-2 weeks for further gynecologic evaluation. - Call or follow up with your PCP for any questions or concerns after discharge. - Follow up with your PCP in 1 week with repeat lab as above. - Come back or seek immediate care at the nearest medical facility should your symptom persists or gets worse - Discharge Plan *PRESCRIPTION DRUG MONITORING PROGRAM REVIEWED*: Not Applicable *COPY OF PRESCRIPTION DRUG MONITORING REPORT IN PATIENT [facility]: Not Applicable Prescriptions/Med Rec: Ciprofloxacin [Ciprofloxacin HCl] 250 mg PO BID #6 tab Saccharomyces Boulardii [Florastor] 250 mg PO BID #6 cap Home Medications: Home Meds Ciprofloxacin [Ciprofloxacin HCl] 250 mg PO BID #6 tab 12/18/18 [Rx] Non-Formulary Medication [NF Drug] 2 drop PO BID 12/18/18 [History] Non-Formulary Medication [NF Drug] 2 tab PO DAILY 12/18/18 [History] Saccharomyces Boulardii [Florastor] 250 mg PO BID #6 cap 12/18/18 [Rx] Patient Handouts: Urinary Tract Infection, Adult, [id number], Uterine Cancer , Anemia Referrals: PCP,None [Primary Care Provider] - - General Info Date of Service: 12/18/18 Admission Dx/Problem (Free Text: Admission Diagnosis/Problem Admission Diagnosis/Problem Anemia Subjective Update: Follow Up Functional Status: Reports: Pain Controlled, Tolerating Diet, Ambulating, Urinating. Denies: New Symptoms - Patient Data Vitals - Most Recent: Last Vital Signs Temp 36.8 C 12/18/18 16:13 Pulse 83 12/18/18 16:13 Resp 16 12/18/18 16:13 BP 114/79 12/18/18 16:13 Pulse Ox 94 L 12/18/18 16:13 Weight - Most Recent: 81.601 kg I&O - Last 24 hours: Intake & Output 12/18/18 12/18/18 12/18/18 06:59 14:59 22:59 Intake Total 1319 520 710 Output Total 2750 300 Balance -1431 520 410 Lab Results - Last 24 hrs: Laboratory Results - last 24 hr 12/17/18 12/17/18 12/17/18 Range/Units 16:28 17:27 18:07 WBC (3.98-10.04) K/mm3 RBC (3.98-5.22) M/mm3 Hgb (11.2-15.7) gm/L Hct (34.1-44.9) % MCV (79.4-94.8) fl MCH (25.6-32.2) pg MCHC (32.2-35.5) g/dl RDW Std Deviation (36.4-46.3) fL Plt Count (182-369) K/mm3 MPV (9.4-12.3) fl Neut % (Auto) (34.0-71.1) % Lymph % (Auto) (19.3-51.7) % [place] % (Auto) (4.7-12.5) % Eos % (Auto) (0.7-5.8) Baso % (Auto) (0.1-1.2) % Neut # (Auto) (1.56-6.13) K/mm3 Lymph # (Auto) (1.18-3.74) K/mm3 [place] # (Auto) (0.24-0.36) K/mm3 Eos # (Auto) (0.04-0.36) K/mm3 Baso # (Auto) (0.01-0.08) K/mm3 Manual Slide Review PT 10.5 (9.5-12.1) SECONDS INR 0.96 APTT (24-31) SECONDS D-Dimer, Quantitative 2.05 H (0.19-0.50) mg/L Sodium (136-145) mEq/L Potassium (3.5-5.1) mEq/L Chloride (98-107) mEq/L Carbon Dioxide (21-32) mEq/L Anion Gap (5-15) BUN (7-18) mg/dL Creatinine (0.55-1.02) mg/dL Est Cr Clr Drug Dosing mL/min Estimated GFR (MDRD) (>60) mL/min BUN/Creatinine Ratio (14-18) Glucose (80-115) mg/dL Hemoglobin A1c (4.50-6.20) % Calcium (8.5-10.1) mg/dL Magnesium (1.8-2.4) mg/dl Iron (50-170) ug/dL TIBC (100-400) ug/dL % Saturation (20-55) % Transferrin (202-364) mg/dL Free T4 (0.76-1.46) ng/dL TSH 3rd Generation (0.358-3.74) uIU/mL Urine Color (Yellow) Urine Appearance (Clear) Urine pH (5.0-8.0) Ur Specific [place] (1.005-1.030) Urine Protein (Negative) Urine Glucose (UA) (Negative) Urine Ketones (Negative) Urine Occult Blood (Negative) Urine Nitrite (Negative) Urine Bilirubin (Negative) Urine Urobilinogen (0.2-1.0) Ur Leukocyte Esterase (Negative) Urine RBC (0-5) /hpf Urine WBC (0-5) /hpf Urine WBC Clumps (NOT SEEN) /hpf Ur Epithelial Cells (0-5) /hpf Urine Bacteria (FEW) /hpf Urine Mucus (FEW) /hpf C trachomatis DNA (PCR) N gonorrhoeae DNA (PCR) Blood Type A NEGATIVE Gel Antibody Screen Negative Crossmatch See Detail See Detail 12/17/18 12/18/18 12/18/18 Range/Units 19:49 02:50 06:05 WBC (3.98-10.04) K/mm3 RBC (3.98-5.22) M/mm3 Hgb (11.2-15.7) gm/L Hct (34.1-44.9) % MCV (79.4-94.8) fl MCH (25.6-32.2) pg MCHC (32.2-35.5) g/dl RDW Std Deviation (36.4-46.3) fL Plt Count (182-369) K/mm3 MPV (9.4-12.3) fl Neut % (Auto) (34.0-71.1) % Lymph % (Auto) (19.3-51.7) % [place] % (Auto) (4.7-12.5) % Eos % (Auto) (0.7-5.8) Baso % (Auto) (0.1-1.2) % Neut # (Auto) (1.56-6.13) K/mm3 Lymph # (Auto) (1.18-3.74) K/mm3 [place] # (Auto) (0.24-0.36) K/mm3 Eos # (Auto) (0.04-0.36) K/mm3 Baso # (Auto) (0.01-0.08) K/mm3 Manual Slide Review PT (9.5-12.1) SECONDS INR APTT (24-31) SECONDS D-Dimer, Quantitative (0.19-0.50) mg/L Sodium 142 (136-145) mEq/L Potassium 4.0 (3.5-5.1) mEq/L Chloride 108 H (98-107) mEq/L Carbon Dioxide 24 (21-32) mEq/L Anion Gap 14.0 (5-15) BUN 12 (7-18) mg/dL Creatinine 0.8 (0.55-1.02) mg/dL Est Cr Clr Drug Dosing 71.81 mL/min Estimated GFR (MDRD) > 60 (>60) mL/min BUN/Creatinine Ratio 15.0 (14-18) Glucose 99 (80-115) mg/dL Hemoglobin A1c (4.50-6.20) % Calcium 8.5 (8.5-10.1) mg/dL Magnesium 1.9 (1.8-2.4) mg/dl Iron (50-170) ug/dL TIBC (100-400) ug/dL % Saturation (20-55) % Transferrin (202-364) mg/dL Free T4 1.03 (0.76-1.46) ng/dL TSH 3rd Generation 3.278 (0.358-3.74) uIU/mL Urine Color Light yellow (Yellow) Urine Appearance Cloudy H (Clear) Urine pH 6.0 (5.0-8.0) Ur Specific [place] 1.020 (1.005-1.030) Urine Protein 1+ H (Negative) Urine Glucose (UA) Negative (Negative) Urine Ketones Trace H (Negative) Urine Occult Blood 2+ H (Negative) Urine Nitrite Negative (Negative) Urine Bilirubin Negative (Negative) Urine Urobilinogen 0.2 (0.2-1.0) Ur Leukocyte Esterase 2+ H (Negative) Urine RBC 10-20 H (0-5) /hpf Urine WBC 40-50 H (0-5) /hpf Urine WBC Clumps Few (NOT SEEN) /hpf Ur Epithelial Cells 0-5 (0-5) /hpf Urine Bacteria Moderate H (FEW) /hpf Urine Mucus Moderate H (FEW) /hpf C trachomatis DNA (PCR) Not detected N gonorrhoeae DNA (PCR) Not detected Blood Type Gel Antibody Screen Crossmatch 12/18/18 12/18/18 12/18/18 Range/Units 06:05 06:05 06:05 WBC 8.08 (3.98-10.04) K/mm3 RBC 3.70 L (3.98-5.22) M/mm3 Hgb 7.5 L (11.2-15.7) gm/L Hct 25.1 L (34.1-44.9) % MCV 67.8 L (79.4-94.8) fl MCH 20.3 L (25.6-32.2) pg MCHC 29.9 L (32.2-35.5) g/dl RDW Std Deviation 62.8 H (36.4-46.3) fL Plt Count 220 (182-369) K/mm3 MPV 9.3 L (9.4-12.3) fl Neut % (Auto) 75.9 H (34.0-71.1) % Lymph % (Auto) 14.6 L (19.3-51.7) % [place] % (Auto) 8.8 (4.7-12.5) % Eos % (Auto) 0.5 L (0.7-5.8) Baso % (Auto) 0.1 (0.1-1.2) % Neut # (Auto) 6.13 (1.56-6.13) K/mm3 Lymph # (Auto) 1.18 (1.18-3.74) K/mm3 [place] # (Auto) 0.71 H (0.24-0.36) K/mm3 Eos # (Auto) 0.04 (0.04-0.36) K/mm3 Baso # (Auto) 0.01 (0.01-0.08) K/mm3 Manual Slide Review Abnormal smear PT (9.5-12.1) SECONDS INR APTT (24-31) SECONDS D-Dimer, Quantitative (0.19-0.50) mg/L Sodium (136-145) mEq/L Potassium (3.5-5.1) mEq/L Chloride (98-107) mEq/L Carbon Dioxide (21-32) mEq/L Anion Gap (5-15) BUN (7-18) mg/dL Creatinine (0.55-1.02) mg/dL Est Cr Clr Drug Dosing mL/min Estimated GFR (MDRD) (>60) mL/min BUN/Creatinine Ratio (14-18) Glucose (80-115) mg/dL Hemoglobin A1c 5.10 (4.50-6.20) % Calcium (8.5-10.1) mg/dL Magnesium (1.8-2.4) mg/dl Iron 80 (50-170) ug/dL TIBC 330 (100-400) ug/dL % Saturation 24 (20-55) % Transferrin 264 (202-364) mg/dL Free T4 (0.76-1.46) ng/dL TSH 3rd Generation (0.358-3.74) uIU/mL Urine Color (Yellow) Urine Appearance (Clear) Urine pH (5.0-8.0) Ur Specific [place] (1.005-1.030) Urine Protein (Negative) Urine Glucose (UA) (Negative) Urine Ketones (Negative) Urine Occult Blood (Negative) Urine Nitrite (Negative) Urine Bilirubin (Negative) Urine Urobilinogen (0.2-1.0) Ur Leukocyte Esterase (Negative) Urine RBC (0-5) /hpf Urine WBC (0-5) /hpf Urine WBC Clumps (NOT SEEN) /hpf Ur Epithelial Cells (0-5) /hpf Urine Bacteria (FEW) /hpf Urine Mucus (FEW) /hpf C trachomatis DNA (PCR) N gonorrhoeae DNA (PCR) Blood Type Gel Antibody Screen Crossmatch 12/18/18 Range/Units 17:28 WBC (3.98-10.04) K/mm3 RBC (3.98-5.22) M/mm3 Hgb 8.6 L (11.2-15.7) gm/L Hct 28.6 L (34.1-44.9) % MCV (79.4-94.8) fl MCH (25.6-32.2) pg MCHC (32.2-35.5) g/dl RDW Std Deviation (36.4-46.3) fL Plt Count (182-369) K/mm3 MPV (9.4-12.3) fl Neut % (Auto) (34.0-71.1) % Lymph % (Auto) (19.3-51.7) % [place] % (Auto) (4.7-12.5) % Eos % (Auto) (0.7-5.8) Baso % (Auto) (0.1-1.2) % Neut # (Auto) (1.56-6.13) K/mm3 Lymph # (Auto) (1.18-3.74) K/mm3 [place] # (Auto) (0.24-0.36) K/mm3 Eos # (Auto) (0.04-0.36) K/mm3 Baso # (Auto) (0.01-0.08) K/mm3 Manual Slide Review PT (9.5-12.1) SECONDS INR APTT (24-31) SECONDS D-Dimer, Quantitative (0.19-0.50) mg/L Sodium (136-145) mEq/L Potassium (3.5-5.1) mEq/L Chloride (98-107) mEq/L Carbon Dioxide (21-32) mEq/L Anion Gap (5-15) BUN (7-18) mg/dL Creatinine (0.55-1.02) mg/dL Est Cr Clr Drug Dosing mL/min Estimated GFR (MDRD) (>60) mL/min BUN/Creatinine Ratio (14-18) Glucose (80-115) mg/dL Hemoglobin A1c (4.50-6.20) % Calcium (8.5-10.1) mg/dL Magnesium (1.8-2.4) mg/dl Iron (50-170) ug/dL TIBC (100-400) ug/dL % Saturation (20-55) % Transferrin (202-364) mg/dL Free T4 (0.76-1.46) ng/dL TSH 3rd Generation (0.358-3.74) uIU/mL Urine Color (Yellow) Urine Appearance (Clear) Urine pH (5.0-8.0) Ur Specific [place] (1.005-1.030) Urine Protein (Negative) Urine Glucose (UA) (Negative) Urine Ketones (Negative) Urine Occult Blood (Negative) Urine Nitrite (Negative) Urine Bilirubin (Negative) Urine Urobilinogen (0.2-1.0) Ur Leukocyte Esterase (Negative) Urine RBC (0-5) /hpf Urine WBC (0-5) /hpf Urine WBC Clumps (NOT SEEN) /hpf Ur Epithelial Cells (0-5) /hpf Urine Bacteria (FEW) /hpf Urine Mucus (FEW) /hpf C trachomatis DNA (PCR) N gonorrhoeae DNA (PCR) Blood Type Gel Antibody Screen Crossmatch Med Orders - Current: Current Medications Hydrocodone Bitart/Acetaminophen ([place] 325-5 Mg) 1 tab PO Q4H PRN PRN Reason: Pain (moderate 4-6) Acetylcysteine (Mucomyst 20%) 800 mg NEB BIDRT [facility] Albuterol/Ipratropium (Duoneb 3.0-0.5 Mg/3 Ml) 3 ml NEB Q4H PRN PRN Reason: Shortness Of Breath/wheezing Bisacodyl (Dulcolax) 5 mg PO DAILY PRN PRN Reason: Constipation Docusate Sodium (Colace) 100 mg PO BID PRN PRN Reason: Constipation Famotidine (Pepcid) 20 mg PO BID [facility] Last Admin: 12/18/18 08:52 Dose: Not Given Hydralazine HCl (Apresoline) 20 mg IVPUSH Q4H PRN PRN Reason: Hypertension Hydromorphone HCl (Dilaudid) 0.25 mg IVPUSH Q2H PRN PRN Reason: Pain (severe 7-10) Sodium Chloride (Normal Saline) 250 mls @ 50 mls/hr IV ASDIRECTED [facility] Last Infusion: 12/18/18 07:00 Dose: Infused Ceftriaxone Sodium 1 gm/ (Sodium Chloride) 100 mls @ 200 mls/hr IV Q24H [facility] Last Admin: 12/18/18 11:45 Dose: 200 mls/hr Lorazepam (Ativan) 2 mg IVPUSH Q4H PRN PRN Reason: Seizures Lorazepam (Ativan) 1 mg IV Q6H PRN PRN Reason: Anxiety Magnesium Sulfate (Pharmacy To Dose - Magnesium Replacement) 0 dose .XX ASDIRECTED PRN PRN Reason: PHARMACY TO DOSE Metoprolol Tartrate (Lopressor) 5 mg IVPUSH Q4H PRN PRN Reason: Tachycardia Ondansetron HCl (Zofran) 4 mg IV Q6H PRN PRN Reason: Nausea/Vomiting Polyethylene Glycol (Miralax) 17 gm PO DAILY PRN PRN Reason: Constipation Potassium Chloride (Pharmacy To Dose - Potassium Replacement) 0 dose .XX ASDIRECTED PRN PRN Reason: PHARMACY TO MONITOR Saccharomyces Boulardii (Florastor) 250 mg PO BID [facility] Last Admin: 12/18/18 11:41 Dose: 250 mg Senna/Docusate Sodium (Senna Plus) 1 tab PO BID PRN PRN Reason: Constipation Temazepam (Restoril) 15 mg PO BEDTIME PRN PRN Reason: Sleep Discontinued Medications Acetaminophen (Tylenol) 650 mg PO NOW ONE Stop: 12/17/18 17:29 Last Admin: 12/17/18 18:18 Dose: 650 mg Diphenhydramine HCl (Benadryl) 25 mg IV ONETIME ONE Stop: 12/17/18 17:29 Last Admin: 12/17/18 18:18 Dose: 25 mg Furosemide (Lasix) 40 mg IVPUSH NOW ONE Stop: 12/17/18 17:29 Last Admin: 12/17/18 18:18 Dose: 40 mg Hydromorphone HCl (Dilaudid) 0.25 mg IVPUSH Q2H PRN PRN Reason: Pain (severe 7-10) Sodium Chloride (Normal Saline) 1,000 mls @ 999 mls/hr IV ONETIME ONE Stop: 12/17/18 18:18 Last Admin: 12/17/18 17:30 Dose: 999 mls/hr Sodium Chloride (Normal Saline) Confirm Administered Dose 200 mls @ as directed .ROUTE .STK-MED ONE Stop: 12/17/18 18:09 Last Admin: 12/17/18 22:26 Dose: Not Given Sodium Chloride (Normal Saline) Confirm Administered Dose 250 mls @ as directed .ROUTE .STK-MED ONE Stop: 12/18/18 00:01 Last Admin: 12/18/18 00:08 Dose: Not Given Ceftriaxone Sodium 1 gm/ (Sodium Chloride) 100 mls @ 200 mls/hr IV Q24H [facility] Last Admin: 12/18/18 11:51 Dose: Not Given Potassium Chloride (Klor-Con M20) 40 meq PO Q4H [facility] Stop: 12/18/18 04:01 Last Admin: 12/18/18 04:13 Dose: 40 meq
[2018-12-18] MEDS ORDERED: Acetylcysteine 20% 200 MG/ML 4 ML Nebulizer Soln SDV NEB SCH (21:00)
== END 2018-12-18 18:58 | disposition home or self-care (01) | DRG 755 ==
LOC: EDBD 16:19 → JD.ED 16:19 → JD.MS 21:20
PROVIDERS: ADMIT Internal Medicine; ATTEND Internal Medicine
PROC: 30233N1 Transfusion of Nonautologous Red Blood Cells into Peripheral Vein, Percutaneous Approach (ICD-10-PCS; principal; 2018-12-17)
DX: C55 Malignant neoplasm of uterus, part unspecified (principal); N39.0 Urinary tract infection, site not specified; C77.5 Secondary and unspecified malignant neoplasm of intrapelvic lymph nodes; D63.0 Anemia in neoplastic disease; Z86.718 Personal history of other venous thrombosis and embolism; Z95.828 Presence of other vascular implants and grafts
CPT/HCPCS: 36415; 36430; 71250; 71250-26; 74176; 74176-26; 80048; 80053; 81001; 83036; 83540; 83735; 84439; 84443; 84466; 85014; 85018; 85025; 85379; 85610; 85730; 86850; 86900; 86901; 86922; 87086; 87491; 87591; 96361; 96374; 96375; 99285; 99285-25; A9270-GY; J0696; J1200; J1940; J7030; J7040; J7050; P9016

== ENCOUNTER 2019-06-03 08:09 | Emergency (ER) | payer MEDICAID, OTHER, SELFPAY ==
[2019-06-03] MEDS ORDERED: Sodium Chloride 0.9% 10 ML Syringe FLUSH PRN (08:44)
--- NOTE | 2019-06-03 08:56 | EDM.PDOC ---
ED HPI GENERAL MEDICAL PROBLEM - General Chief Complaint: Genitourinary Problem Stated Complaint: [facility] Time Seen by Provider: 06/03/19 08:25 Source of Information: Reports: Patient, EMS History Limitations: Reports: No Limitations - History of Present Illness INITIAL COMMENTS - FREE TEXT/NARRATIVE: The patient presents by [facility] for vaginal bleeding. The patient has a know history of uterine cancer. She was diagnosed in 2011. She lost her insurance at that time and could not follow up with treatment. She moved up here and has vaginal bleeding every week and sometimes daily. She was seen here back in December and was admitted to the hospital for anemia and vaginal bleeding. The bleeding was worse at that time. She was then discharged and followed up with [facility] in [place]. She tells me she was a couple days before surgery when her insurance company [employer] stopped the procedure and had her to to their [facility] in [place], [place]. She was going to see Dr Cortes there but her office called and said here EKG showed her heart was to weak for surgery. She was referred to a family assessment worker. She went to see someone and they she said it was not a family assessment worker. She decided to let things settle down before she would try again. She now has increased vaginal bleeding over the past 3 to 4 days. She is also lightheaded and dizzy when she stands up. She has no pain. She has no fever, chills, cough, chest pain, shortness of breath, abdominal pain, or dysuria. She has no history of problems with her heart. She has no history of diabetes, hypertension or hypercholesterolemia. Onset: Gradual Duration: Day(s): (4) Severity: Moderate Improves with: Reports: None Worsens with: Reports: None Associated Symptoms: Reports: No Other Symptoms - Related Data Allergies Allergy/AdvReac Type Severity Reaction Status Date / Time No Known Allergies Allergy Verified 06/03/19 08:13 Home Meds: Home Meds . 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 Neurological History: Reports: Migraines Hematologic History: Reports: Anemia, Blood Transfusion(s), Other (See Below) Other Hematologic History: DVT Oncologic (Cancer) History: Reports: Uterine Other Oncologic History: Diagnosed 2011, No treatment done to this date - Infectious Disease History Infectious Disease History: Reports: Chicken Pox, Measles - Past Surgical History Oncologic Surgical History: Reports: None Social & Family History - Family History Family Medical History: Noncontributory - Tobacco Use Smoking Status *Q: Never Smoker Second Hand Smoke Exposure: No - Caffeine Use Caffeine Use: Reports: Coffee Caffeine Use Comment: 12 oz daily - Recreational Drug Use Recreational Drug Use: No ED ROS GENERAL - Review of Systems Review Of Systems: See Below Constitutional: Reports: No Symptoms HEENT: Reports: No Symptoms Respiratory: Reports: No Symptoms Cardiovascular: Reports: No Symptoms Endocrine: Reports: No Symptoms GI/Abdominal: Reports: No Symptoms : Reports: Other (Vaginal bleeding) Musculoskeletal: Reports: No Symptoms ED EXAM, GI/ABD - Physical Exam Exam: See Below Exam Limited By: No Limitations General Appearance: Alert, No Apparent Distress Ears: Normal External Exam Nose: Normal Inspection Head: Atraumatic, Normocephalic Neck: Normal Inspection Respiratory/Chest: No Respiratory Distress, Lungs Clear, Normal Breath Sounds Cardiovascular: Regular Rate, Rhythm, No Edema, No Murmur GI/Abdominal Exam: Soft, Non-Tender, No Organomegaly, No Mass Back Exam: Normal Inspection Extremities: Normal Inspection Neurological: Alert, Oriented, No Motor/Sensory Deficits Skin Exam: Other (pale) Course - Vital Signs Last Recorded V/S: Last Vital Signs Temp 97.5 F 06/03/19 12:15 Pulse 86 06/03/19 12:15 Resp 14 06/03/19 12:15 BP 119/55 L 06/03/19 12:15 Pulse Ox 95 06/03/19 11:55 - Orders/Labs/Meds Orders: Active Orders 24 hr Category Date Time Status Cardiac Monitoring [RC] . DIRECTED Care 06/03/19 08:45 Active EKG Documentation Completion [RC] ASDIRECTED Care 06/03/19 08:46 Active Pelvic Exam, Set Up [RC] ASDIRECTED Care 06/03/19 08:45 Active Peripheral IV Care [RC] . DIRECTED Care 06/03/19 08:45 Active TYPE AND SCREEN [BBK] Stat Lab 06/03/19 08:57 Results Sodium Chloride 0.9% [Normal Saline] 1,000 ml Med 06/03/19 09:15 Active IV ASDIRECTED Sodium Chloride 0.9% [Saline Flush] Med 06/03/19 08:44 Active 10 ml FLUSH ASDIRECTED PRN Peripheral IV Insertion Adult [OM.PC] Stat Ot 06/03/19 08:44 Ordered Transfuse PRBC [Transfuse Red Blood Cells] [COMM] Stat Ot 06/03/19 08:47 Ordered Transfuse PRBC [Transfuse Red Blood Cells] [COMM] Stat Ot 06/03/19 12:30 Ordered EKG 12 Lead [EK] Stat Ther 06/03/19 08:46 Ordered Medication Orders Sodium Chloride (Normal Saline) 1,000 mls @ 1 mls/hr IV ASDIRECTED BOB Last Admin: 06/03/19 09:33 Dose: 1 mls/hr Sodium Chloride (Saline Flush) 10 ml FLUSH ASDIRECTED PRN PRN Reason: Keep Vein Open Last Admin: 06/03/19 08:10 Dose: 10 ml Labs: Laboratory Tests 06/03/19 06/03/19 06/03/19 Range/Units 08:57 08:57 08:57 WBC 9.86 (3.98-10.04) K/mm3 RBC 2.31 L (3.98-5.22) M/mm3 Hgb 4.7 L* D (11.2-15.7) gm/dl Hct 18.7 L (34.1-44.9) % MCV 81.0 D (79.4-94.8) fl MCH 20.3 L (25.6-32.2) pg MCHC 25.1 L (32.2-35.5) g/dl RDW Std Deviation 50.4 H (36.4-46.3) fL Plt Count 255 (182-369) K/mm3 MPV 10.3 (9.4-12.3) fl Neut % (Auto) 84.9 H (34.0-71.1) % Lymph % (Auto) 8.5 L (19.3-51.7) % [place] % (Auto) 6.2 (4.7-12.5) % Eos % (Auto) 0 L (0.7-5.8) Baso % (Auto) 0.2 (0.1-1.2) % Neut # (Auto) 8.37 H (1.56-6.13) K/mm3 Lymph # (Auto) 0.84 L (1.18-3.74) K/mm3 [place] # (Auto) 0.61 H (0.24-0.36) K/mm3 Eos # (Auto) 0.00 L (0.04-0.36) K/mm3 Baso # (Auto) 0.02 (0.01-0.08) K/mm3 Manual Slide Review Abnormal smear Sodium 142 (136-145) mEq/L Potassium 3.8 (3.5-5.1) mEq/L Chloride 112 H (98-107) mEq/L Carbon Dioxide 20 L (21-32) mEq/L Anion Gap 13.8 (5-15) BUN 13 (7-18) mg/dL Creatinine 0.7 (0.55-1.02) mg/dL Est Cr Clr Drug Dosing 81.03 mL/min Estimated GFR (MDRD) > 60 (>60) mL/min BUN/Creatinine Ratio 18.6 H (14-18) Glucose 107 (80-115) mg/dL Calcium 8.4 L (8.5-10.1) mg/dL Total Bilirubin 0.3 (0.2-1.0) mg/dL AST 12 L (15-37) U/L ALT 14 (14-59) U/L Alkaline Phosphatase 82 (46-116) U/L Troponin I 0.019 (0.00-0.056) ng/mL Total Protein 5.7 L (6.4-8.2) g/dl Albumin 2.6 L (3.4-5.0) g/dl Globulin 3.1 gm/dL Albumin/Globulin Ratio 0.8 L (1-2) Blood Type A NEGATIVE Gel Antibody Screen Negative Crossmatch See Detail Meds: Medications Generic Name Dose Route Start Last Admin Trade Name Freq PRN Reason Stop Dose Admin Sodium Chloride 1,000 mls @ 1 mls/hr 06/03/19 09:15 06/03/19 09:33 Normal Saline IV 1 mls/hr ASDIRECTED BOB Administration Sodium Chloride 10 ml 06/03/19 08:44 06/03/19 08:10 Saline Flush FLUSH 10 ml ASDIRECTED PRN Administration Keep Vein Open - Re-Assessments/Exams Free Text/Narrative Re-Assessment/Exam: 06/03/19 08:57 I ordered an IV saline lock, EKG, transvaginal US, labs, type and screen and 2 units of blood. 06/03/19 12:19 Her WBC and platelets were normal. Her Hgb today is 4.7. In February her Hgb was normal at 12.7. Her CMP was normal. Her troponin was normal. Her US shows small intraluminal finding within the uterus possibly due to small polyp. Hysterosonograph would be needed to confirm. Small uterine fibroid believed to be present. Nonvisualized ovaries. No additional abnormality is appreciated. Back in December she had a CT of her chest, abdomen and pelvis. The CT of her chest shows minimal right-sided pleural effusion. Other findings are most likely incidental as described above. Nothing acute is seen. The CT of her abdomen and pelvis shows enlarged and slightly lobulated uterus which is nonspecific. Slightly enlarged lymph node within the right external iliac chain measuring 2.1cm. Difficult to exclude metastatic lymph node. Other incidental findings as noted above. I feel she needs to be admitted but I feel it would be more appropriate to go where her [facility] doctor is Dr Cortes. I called [facility] and talked with Dr Cortes and she accepted the patient. She did want another unit of blood. I have ordered that. Departure - Departure Time of Disposition: 12:35 Disposition: DC/Tfer to [facility] 02 Condition: Serious Clinical Impression: Anemia Qualifiers: Anemia type: other cause Other causes of anemia: chronic disease, neoplastic Qualified Code(s): D63.0 - Anemia in neoplastic disease Uterine cancer Qualifiers: Malignant neoplasm of uterus location: unspecified site of uterus Qualified Code(s): C55 - Malignant neoplasm of uterus, part unspecified - Discharge Information Referrals: PCP,None [Primary Care Provider] - Forms: ED Department Discharge - My Orders Last 24 Hours: My Active Orders 06/03/19 08:44 Sodium Chloride 0.9% [Saline Flush] 10 ml FLUSH ASDIRECTED PRN Peripheral IV Insertion Adult [OM.PC] Stat 06/03/19 08:45 Cardiac Monitoring [RC] . DIRECTED Pelvic Exam, Set Up [RC] ASDIRECTED Peripheral IV Care [RC] . DIRECTED 06/03/19 08:46 EKG Documentation Completion [RC] ASDIRECTED EKG 12 Lead [EK] Stat 06/03/19 08:47 Transfuse PRBC [Transfuse Red Blood Cells] [COMM] Stat 06/03/19 08:57 TYPE AND SCREEN [BBK] Stat 06/03/19 09:15 Sodium Chloride 0.9% [Normal Saline] 1,000 ml IV ASDIRECTED 06/03/19 12:30 Transfuse PRBC [Transfuse Red Blood Cells] [COMM] Stat - Assessment/Plan Last 24 Hours: My Active Orders 06/03/19 08:44 Sodium Chloride 0.9% [Saline Flush] 10 ml FLUSH ASDIRECTED PRN Peripheral IV Insertion Adult [OM.PC] Stat 06/03/19 08:45 Cardiac Monitoring [RC] . DIRECTED Pelvic Exam, Set Up [RC] ASDIRECTED Peripheral IV Care [RC] . DIRECTED 06/03/19 08:46 EKG Documentation Completion [RC] ASDIRECTED EKG 12 Lead [EK] Stat 06/03/19 08:47 Transfuse PRBC [Transfuse Red Blood Cells] [COMM] Stat 06/03/19 08:57 TYPE AND SCREEN [BBK] Stat 06/03/19 09:15 Sodium Chloride 0.9% [Normal Saline] 1,000 ml IV ASDIRECTED 06/03/19 12:30 Transfuse PRBC [Transfuse Red Blood Cells] [COMM] Stat
[2019-06-03] MEDS ORDERED: Sodium Chloride 0.9% 1,000 ML IV SCH (09:15)
--- NOTE | 2019-06-03 12:06 | US ---
Pelvic ultrasound: Multiple real-time images were obtained transvaginally and transabdominally. Uterus is anteverted. Small focal hypoechoic area is seen within the endometrial cavity. This may possibly represent a small endometrial polyp. Small subserosal finding is seen off the anterior and right sided uterine body most likely due to small fibroid. No additional abnormality is seen within the uterus. Endometrial thickness difficult to measure as good stripe is not seen. Both ovaries are not visualized. Impression: 1. Small intraluminal finding within the uterus possibly due to small polyp. Hysterosonograph would be needed to confirm. 2. Small uterine fibroid believed to be present. 3. Nonvisualized ovaries. No additional abnormality is appreciated. Diagnostic code #3
== END 2019-06-03 13:10 ==
LOC: JD.ED 08:09
DX: C55 Malignant neoplasm of uterus, part unspecified (principal); D63.0 Anemia in neoplastic disease; Z86.718 Personal history of other venous thrombosis and embolism
CPT/HCPCS: 36415; 36430; 76830; 80053; 84484; 85025; 86850; 86900; 86901; 86922; 93005; 99285; J7040; P9016

== ENCOUNTER 2020-08-15 09:19 | Emergency (ER) | payer MEDICAID ==
[2020-08-15] MEDS ORDERED: Sodium Chloride 0.9% 10 ML Syringe FLUSH PRN ×2 (10:06→10:18)
[2020-08-15] MEDS ORDERED: Sodium Chloride 0.9% 1,000 ML IV STA (10:06)
[2020-08-15] MEDS ORDERED: Ondansetron 4 MG/2 ML SDV IVPUSH ONE (10:06)
--- NOTE | 2020-08-15 10:13 | EDM.PDOC ---
ED HPI GENERAL MEDICAL PROBLEM - General Chief Complaint: Gastrointestinal Problem Stated Complaint: CONSTIPATION X 13 DAYS Time Seen by Provider: 08/15/20 09:39 Source of Information: Reports: Patient History Limitations: Reports: No Limitations - History of Present Illness INITIAL COMMENTS - FREE TEXT/NARRATIVE: The patient presents with constipation and abdominal pain. She says she has not had a bowel movement for 13 days. She had some small output in that time but not much. She does have gas. She has uterine cancer and she had surgery to remove the uterus and tumor last year in May. They could not get all the tumors. She was supposed to be on hormonal therapy but she does not trust the medications and did not go on it. She is on Letrozole for the cancer and tramadol both of which cause constipation. She has no nausea or vomiting. She does not have an appetite. She eats very little. She has no fever, chills, cough, congestion, runny nose, chest pain, shortness of breath, or dysuria. She did try some over the counter medicines but they cause cramping. 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 Neurological History: Reports: Migraines Hematologic History: Reports: Anemia, Blood Transfusion(s), Other (See Below) Other Hematologic History: DVT Oncologic (Cancer) History: Reports: Uterine Other Oncologic History: Diagnosed 2011, No treatment done to this date - Infectious Disease History Infectious Disease History: Reports: Chicken Pox, Measles - Past Surgical History Oncologic Surgical History: Reports: None Social & Family History - Family History Family Medical History: No Pertinent Family History - Tobacco Use Tobacco Use Status *Q: Never Tobacco User - Caffeine Use Caffeine Use: Reports: None Caffeine Use Comment: 12 oz daily - Recreational Drug Use Recreational Drug Use: No ED ROS GENERAL - Review of Systems Review Of Systems: See Below Constitutional: Reports: No Symptoms HEENT: Reports: No Symptoms Respiratory: Reports: No Symptoms Cardiovascular: Reports: No Symptoms Endocrine: Reports: No Symptoms GI/Abdominal: Reports: Abdominal Pain, Constipation. Denies: Diarrhea, Nausea, Vomiting : Reports: No Symptoms Musculoskeletal: Reports: No Symptoms ED EXAM, GI/ABD - Physical Exam Exam: See Below Exam Limited By: No Limitations General Appearance: Alert, No Apparent Distress Ears: Normal External Exam Nose: Normal Inspection Head: Atraumatic, Normocephalic Neck: Normal Inspection Respiratory/Chest: No Respiratory Distress, Lungs Clear, Normal Breath Sounds Cardiovascular: Regular Rate, Rhythm, No Edema, No Murmur GI/Abdominal Exam: Soft, Tender (Mild lower abdominal tenderness), Mass (right lower abdomen to mid abdomen) Back Exam: Normal Inspection Extremities: Normal Inspection Course - Vital Signs Last Recorded V/S: Last Vital Signs Temp 98.2 F 08/15/20 09:36 Pulse 107 H 08/15/20 09:36 Resp 12 08/15/20 09:36 BP 147/94 H 08/15/20 09:36 Pulse Ox 100 08/15/20 09:36 - Orders/Labs/Meds Orders: Active Orders 24 hr Category Date Time Status Peripheral IV Care [RC] . DIRECTED Care 08/15/20 10:06 Active Sodium Chloride 0.9% [Saline Flush] Med 08/15/20 10:06 Active 10 ml FLUSH ASDIRECTED PRN Sodium Chloride 0.9% [Saline Flush] Med 08/15/20 10:18 Active 10 ml FLUSH ONETIME PRN ED Antiemetic Medication Reflex [OM.PC] Stat Oth 08/15/20 10:06 Ordered Peripheral IV Insertion Adult [OM.PC] Stat Oth 08/15/20 10:06 Ordered Medication Orders Sodium Chloride (Saline Flush) 10 ml FLUSH ASDIRECTED PRN PRN Reason: Keep Vein Open Last Admin: 08/15/20 11:13 Dose: 10 ml Documented by: ADELINA Sodium Chloride (Saline Flush) 10 ml FLUSH ONETIME PRN PRN Reason: IV FLUSH Last Admin: 08/15/20 11:23 Dose: 10 ml Documented by: DEJA Labs: Laboratory Tests 08/15/20 08/15/20 08/15/20 Range/Units 10:20 10:20 12:09 WBC 9.42 (3.98-10.04) K/mm3 RBC 5.00 (3.98-5.22) M/mm3 Hgb 12.1 D (11.2-15.7) gm/dl Hct 41.3 (34.1-44.9) % MCV 82.6 (79.4-94.8) fl MCH 24.2 L (25.6-32.2) pg MCHC 29.3 L (32.2-35.5) g/dl RDW Std Deviation 48.8 H (36.4-46.3) fL Plt Count 300 (182-369) K/mm3 MPV 8.9 L (9.4-12.3) fl Neut % (Auto) 85.1 H (34.0-71.1) % Lymph % (Auto) 6.4 L (19.3-51.7) % [place] % (Auto) 8.1 (4.7-12.5) % Eos % (Auto) 0 L (0.7-5.8) Baso % (Auto) 0.2 (0.1-1.2) % Neut # (Auto) 8.02 H (1.56-6.13) K/mm3 Lymph # (Auto) 0.60 L (1.18-3.74) K/mm3 [place] # (Auto) 0.76 H (0.24-0.36) K/mm3 Eos # (Auto) 0.00 L (0.04-0.36) K/mm3 Baso # (Auto) 0.02 (0.01-0.08) K/mm3 Manual Slide Review Abnormal smear Sodium 138 (136-145) mEq/L Potassium 3.5 (3.5-5.1) mEq/L Chloride 102 (98-107) mEq/L Carbon Dioxide 26 (21-32) mEq/L Anion Gap 13.5 (5-15) BUN 12 (7-18) mg/dL Creatinine 1.0 (0.55-1.02) mg/dL Est Cr Clr Drug Dosing 56.00 mL/min Estimated GFR (MDRD) 56 (>60) mL/min BUN/Creatinine Ratio 12.0 L (14-18) Glucose 94 (80-115) mg/dL Calcium 10.6 H D (8.5-10.1) mg/dL Total Bilirubin 0.4 (0.2-1.0) mg/dL AST 32 (15-37) U/L ALT 19 (14-59) U/L Alkaline Phosphatase 104 (46-116) U/L Total Protein 9.1 H (6.4-8.2) g/dl Albumin 2.9 L (3.4-5.0) g/dl Globulin 6.2 gm/dL Albumin/Globulin Ratio 0.5 L (1-2) Lipase 104 (73-393) U/L Urine Color Yellow (Yellow) Urine Appearance Clear (Clear) Urine pH 7.0 (5.0-8.0) Ur Specific [place] 1.020 (1.005-1.030) Urine Protein Negative (Negative) Urine Glucose (UA) Negative (Negative) Urine Ketones Negative (Negative) Urine Occult Blood 2+ H (Negative) Urine Nitrite Negative (Negative) Urine Bilirubin Negative (Negative) Urine Urobilinogen 0.2 (0.2-1.0) Ur Leukocyte Esterase 1+ H (Negative) Urine RBC 10-20 H (0-5) /hpf Urine WBC 10-20 H (0-5) /hpf Ur Squamous Epith Cells 0-5 (0-5) /hpf Urine Bacteria Few (FEW) /hpf Urine Mucus Few (FEW) /hpf Meds: Medications Generic Name Dose Route Start Last Admin Trade Name Freq PRN Reason Stop Dose Admin Sodium Chloride 10 ml 08/15/20 10:06 08/15/20 11:13 Saline Flush FLUSH 10 ml ASDIRECTED PRN Administration Keep Vein Open Sodium Chloride 10 ml 08/15/20 10:18 08/15/20 11:23 Saline Flush FLUSH 10 ml ONETIME PRN Administration IV FLUSH Discontinued Medications Generic Name Dose Route Start Last Admin Trade Name Freq PRN Reason Stop Dose Admin Diatrizoate Meglum/Diatrizoate Sod 120 ml 08/15/20 10:18 08/15/20 11:22 Gastrografin 37% PO 08/15/20 10:19 90 ml ONETIME ONE Administration Sodium Chloride 1,000 mls @ 1,000 mls/hr 08/15/20 10:06 08/15/20 10:31 Normal Saline IV 08/15/20 11:05 1,000 mls/hr .BOLUS STA Administration Iopamidol 50 ml 08/15/20 10:18 08/15/20 11:22 Isovue-300 (61%) IVPUSH 08/15/20 10:19 50 ml ONETIME ONE Administration Iopamidol 100 ml 08/15/20 10:18 08/15/20 11:22 Isovue-300 (61%) IVPUSH 08/15/20 10:19 100 ml ONETIME ONE Administration Magnesium Citrate 296 ml 08/15/20 15:00 Citrate Of Magnesia PO 08/15/20 15:01 ONETIME ONE Ondansetron HCl 4 mg 08/15/20 10:06 08/15/20 10:31 Zofran IVPUSH 08/15/20 10:07 4 mg ONETIME ONE Administration - Re-Assessments/Exams Free Text/Narrative Re-Assessment/Exam: 08/15/20 10:14 I ordered an IV NS 1L bolus, zofran 4mg IV, labs, UA and a CT of her abdomen and pelvis. 08/15/20 14:47 Her CBC and CMP look good. Her UA shows no UTI. Her CT shows adenopathy, mass in the pelvis and lesion in the liver. She also has dilated ureters. There is no obstruction. The patient has been seeing Dr Nation at [facility] and the patient says he was vague about what was going on and he only recommended chemo and radiation. She would like to see someone else. I called [facility] in [place] and talked with Dr Morales and she wanted me to fax a referral to her and her numbers and they will try to get her in. Departure - Departure Time of Disposition: 15:00 Disposition: Home, Self-Care 01 Condition: Good Clinical Impression: Abdominal pain, Pelvic mass, Mass of left lobe of liver - Discharge Information *PRESCRIPTION DRUG MONITORING PROGRAM REVIEWED*: Not Applicable *COPY OF PRESCRIPTION DRUG MONITORING REPORT IN PATIENT [place]: Not Applicable Referrals: PCP,None [Primary Care Provider] - Forms: ED Department Discharge Additional Instructions: Take the magnesium citrate 8 ounces and then drink a couple glasses of water. If you do not have a bowel movement try another dose in the morning. Drink plenty of fluids. I have sent a referral to Dr Morales an oncologist at [place]. Someone from her office should call you. If you do not hear from her by late Tuesday please call her office at . Please return if you are worse. Sepsis Event Note (ED) - Evaluation Sepsis Screening Result: No Definite Risk - Focused Exam Vital Signs: Vital Signs Temp Pulse Resp BP Pulse Ox 08/15/20 09:36 98.2 F 107 H 12 147/94 H 100 - My Orders Last 24 Hours: My Active Orders 08/15/20 10:06 Peripheral IV Care [RC] . DIRECTED Sodium Chloride 0.9% [Saline Flush] 10 ml FLUSH ASDIRECTED PRN ED Antiemetic Medication Reflex [OM.PC] Stat Peripheral IV Insertion Adult [OM.PC] Stat 08/15/20 10:18 Sodium Chloride 0.9% [Saline Flush] 10 ml FLUSH ONETIME PRN - Assessment/Plan Last 24 Hours: My Active Orders 08/15/20 10:06 Peripheral IV Care [RC] . DIRECTED Sodium Chloride 0.9% [Saline Flush] 10 ml FLUSH ASDIRECTED PRN ED Antiemetic Medication Reflex [OM.PC] Stat Peripheral IV Insertion Adult [OM.PC] Stat 08/15/20 10:18 Sodium Chloride 0.9% [Saline Flush] 10 ml FLUSH ONETIME PRN
[2020-08-15] MEDS ORDERED: Iopamidol 612 MG/ML 50 ML SDV IVPUSH ONE (10:18)
[2020-08-15] MEDS ORDERED: Diatrizoate Meglumine/Diatrizoate Sodium 37% 120 ML Bottle PO ONE (10:18)
[2020-08-15] MEDS ORDERED: Iopamidol 612 MG/ML 100 ML Bottle IVPUSH ONE (10:18)
--- NOTE | 2020-08-15 12:07 | CT ---
CT abdomen and pelvis Technique: Multiple axial sections were obtained from above the dome of the diaphragm inferiorly through the pubic symphysis. Delayed images were also obtained of the abdomen and pelvis along with reconstructed coronal and sagittal images. Comparison: Prior CT abdomen and pelvis study of 12/17/18 as well as prior pelvic ultrasound of 06/03/19. Findings: Visualized lung bases: Areas of atelectasis are seen within both lung bases. There are lymph nodes being seen within the lower areas around the spine. These lymph nodes extend into the retroperitoneum. Liver and spleen: Low-density area is noted within the anterior right lobe of the liver measuring up to 5.5 cm. This is suspicious for possible metastatic lesion. Spleen appears normal. Adrenal glands: Adrenal glands show no adenopathy. Kidneys: Kidneys show evidence of bilateral ureteral dilatation. Delayed images show contrast within dilated calyces with no contrast seen within the collecting systems. This is an interval change from prior exam. Aorta and retroperitoneal: Aorta shows no aneurysm. Prominent retroperitoneal adenopathy is identified. This retroperitoneal adenopathy is an interval change from prior study. Retroperitoneal adenopathy continues into the pelvis. Inferior vena cava: Inferior vena cava stent is present. Mesentery: Mesenteric mass is noted within the anterior left side at the level of the upper pelvis measuring approximately 3.0 cm. Pelvis: Large masses are seen on both sides of the pelvis. These most likely are due to large lymph nodes although other etiology such as adnexal abnormalities are difficult to exclude. No inguinal adenopathy is seen. No free fluid is seen. Bone window settings were reviewed which show degenerative change within the spine with no acute abnormality being appreciated. Impression: 1. Adenopathy around the spine within the lower chest with this adenopathy continuing into the retroperitoneum and pelvis. 2. Pelvic adenopathy seen along both sidewalls versus other mass from the adnexa. 3. Low density within the anterior liver measuring approximately 5.2 cm most likely representing liver metastasis. 4. Mesenteric mass at the upper level of the pelvis to the left of midline most likely metastatic. 5. Dilated ureters within both kidneys. This finding is most likely due to the pelvic abnormality. Note: These findings are all in interval change from previous studies. Diagnostic code #9
[2020-08-15] MEDS ORDERED: Magnesium Citrate Solution 296 ML Bottle PO ONE (15:00)
== END 2020-08-15 15:54 | disposition home or self-care (01) ==
LOC: JD.ED 09:19
DX: R19.03 Right lower quadrant abdominal swelling, mass and lump (principal); R16.0 Hepatomegaly, not elsewhere classified
CPT/HCPCS: 36415; 74177; 74177-26; 80053; 81001; 83690; 85025; 96374; 99284; 99284-25; A9270-GY; J2405; J7030; Q9963; Q9967